=== PATIENT | male | born 1990 ===

== ENCOUNTER 2017-09-15 23:42 | Emergency (ER) | payer SELFPAY ==
--- NOTE | 2017-09-16 00:01 | EDPHY ---
H & P Time Seen by Provider: 09/15/17 23:46 HPI/ROS: CC: trouble breathing, dry throat HPI: Translation services: Clint #[id number] This 27-year-old male presents to the emergency department with his sister and her stating he was feeling very bad after smoking marijuana approximately 2 hr prior to arrival. He states he was difficult for him to breathe in his throat felt tight and dry. This is the 1st time he has smoked marijuana. He bought it from a local dispensary. He also felt his heart beating fast. He denies taking any other medications or drugs. He has not had any long trips or travel. He states he had a cough/cold a few days ago and was taking Nyquil as needed. He denies dizziness, headache, visual disturbances, throat pain, chest pain, throat swelling, abdominal pain, leg pain or swelling. REVIEW OF SYSTEMS: Constitutional: No fever, no chills. Eyes: No discharge. ENT: No sore throat. Respiratory: See HPI Cardiac: See HPI Gastrointestinal: No abdominal pain, no nausea, no vomiting. Genitourinary: No hematuria. Musculoskeletal: No back pain. Skin: No rashes. Neurological: No headache. Past Medical/Surgical History: Past medical history: Denied Past surgical history: Denied Family history: Denied No known drug allergies Medications NyQuil recently p.r.n.; no prescription medications No family physician or clinic Social History: Denies tobacco products, sometimes drinks alcohol and states his last alcoholic beverage was August 25. As stated in the history of present illness tonight was the 1st night he tried marijuana which he bought from a local dispensary. Physical Exam: General Appearance: Alert, no distress. Anxious. Eyes: Pupils equal and round no pallor or injection. ENT, Mouth: Mucous membranes are dry. Respiratory: There are no retractions, lungs are clear to auscultation. Cardiovascular: Borderline tachycardia, regular rhythm. No murmurs, gallops, or rubs. Gastrointestinal: Abdomen is soft and nontender, no masses, bowel sounds normal. Neurological: Awake and alert, sensory and motor exams grossly normal. Skin: Warm and dry, no rashes. Musculoskeletal: Neck is supple nontender. No lymphadenopathy. Extremities are symmetrical, full range of motion. No calf tenderness or swelling. Psychiatric: Patient is oriented X 3, there is no agitation. DIFFERENTIAL DIAGNOSIS: After history and physical exam differential diagnosis was considered for but not limited to: [marijuana side effects, URI] Constitutional: Initial Vital Signs Temperature (C) 98.2 F 09/15/17 23:50 Heart Rate 103 H 09/15/17 23:50 Respiratory Rate 18 09/15/17 23:50 Blood Pressure 124/79 H 09/15/17 23:50 O2 Sat (%) 97 09/15/17 23:50 O2 Delivery Mode Room Air Allergies/Adverse Reactions: No Known Allergies Allergy (Unverified 09/16/17 00:07) Home Medications: Medication Instructions Recorded NK [No Known Home Meds] 09/16/17 Medical Decision Making ED Course/Re-evaluation: The patient was seen and examined. Vital signs reviewed. Again, the web application tester used for this visit was Clint, #[id number]. The patient was borderline tachycardic but otherwise his vital signs were normal. He was thirsty and given water to drink. His physical exam was normal. His symptoms this evening are likely effects of marijuana use which he tried for the 1st time this evening. He was given Ativan 0.5 mg orally. He is to drink plenty of fluids and rest. He should return to the emergency room if symptoms persist, worsen or change as discussed. Departure - Departure Disposition: Home, Routine, Self-Care Clinical Impression: Marijuana use Condition: Good Instructions: Medicinal Use of Cannabis (ED) Additional Instructions: Drink plenty of fluids. Rest. Return to the ER if you have any change or worsening of symptoms. Referrals: Patient,NotPresent [Primary Care Provider] - As per Instructions Print Language: [place]
[2017-09-16 00:11] VITALS: BP 124/79; PULSE 103; RESP 18; TEMP 98.2; O2SAT 97
[2017-09-16] MEDS ORDERED: LORazepam 0.5 MG TAB PO ONE (00:15)
== END 2017-09-16 00:25 | disposition home or self-care (01) ==
LOC: CED 23:42
DX: F12.90 Cannabis use, unspecified, uncomplicated (principal)